=== PATIENT | female | born 1950 | race Caucasian/White ===

== ENCOUNTER → 2016-08-27 | Outpatient (CLI) | payer OTHER, BC ==
[2016-08-27 16:44] LABS: MEAN CORPUSCULAR HEMOGLOBIN 31.3 pg (27.0-33.0); MEAN CORPUSCULAR HGB CONC 34.5 g/dl (32.0-36.5); MEAN CORPUSCULAR VOLUME 90.7 fl (80.0-96.0); WHITE BLOOD COUNT 7.2 K/mm3 (4.0-10.0)
[2016-08-27 17:28] LABS: ALBUMIN/GLOBULIN RATIO 1.33 (1.00-1.93); ALKALINE PHOSPHATASE 43 U/L (45-117); ALT/SGPT 26 U/L (12-78); ANION GAP 6 MEQ/L (8-16); AST/SGOT 24 U/L (15-37); BILIRUBIN,TOTAL 0.6 MG/DL (0.2-1.0); BLOOD UREA NITROGEN 15 MG/DL (7-18); CALCIUM LEVEL 9.2 MG/DL (8.8-10.2); CARBON DIOXIDE LEVEL 33 MEQ/L (21-32); CHLORIDE LEVEL 104 MEQ/L (98-107); CHOLESTEROL LEVEL 197 MG/DL (<200); CREATININE FOR GFR 0.68 MG/DL (0.55-1.02); GLOMERULAR FILTRATION RATE > 60.0 (>45); GLUCOSE, FASTING 88 MG/DL (80-110); MAGNESIUM LEVEL 2.1 MG/DL (1.8-2.4); POTASSIUM SERUM 4.4 MEQ/L (3.5-5.1); SODIUM LEVEL 143 MEQ/L (136-145); TRIGLYCERIDES LEVEL 157 MG/DL (<150)
== END ==
LOC: M WUC 13:57
PROVIDERS: ATTEND Family Medicine
DX: I10 Essential (primary) hypertension (principal); E83.42 Hypomagnesemia

== ENCOUNTER → 2016-10-22 | Outpatient (CLI) | payer BC, OTHER ==
--- NOTE | 2016-10-22 18:19 | REP ---
Right foot four views: There is no fracture or dislocation. There are no calcifications or foreign bodies. There is spurring along the superior margin of the tarsal ossicles compatible with osteoarthritis. Mineralization joint spaces are otherwise unremarkable. Incidentally identified is a tiny calcaneal plantar spur. Impression: Tarsal osteoarthritis. Tiny calcaneal spur. Signed by Konstantin Dowell MD 10/22/2016 06:11 P
== END ==
LOC: M WUC 17:30
PROVIDERS: ATTEND Physician Assistant
DX: M79.671 Pain in right foot (principal); M77.31 Calcaneal spur, right foot; M19.071 Primary osteoarthritis, right ankle and foot

== ENCOUNTER → 2016-11-23 | Outpatient (CLI) | payer OTHER, BC ==
[2016-11-23 17:26] LABS: ALBUMIN/GLOBULIN RATIO 1.29 (1.00-1.93); ALKALINE PHOSPHATASE 45 U/L (45-117); ALT/SGPT 43 U/L (12-78); ANION GAP 7 MEQ/L (8-16); AST/SGOT 46 U/L (15-37); BILIRUBIN,TOTAL 0.2 MG/DL (0.2-1.0); BLOOD UREA NITROGEN 17 MG/DL (7-18); CALCIUM LEVEL 9.7 MG/DL (8.8-10.2); CARBON DIOXIDE LEVEL 32 MEQ/L (21-32); CHLORIDE LEVEL 103 MEQ/L (98-107); CREATININE FOR GFR 0.79 MG/DL (0.55-1.02); GLOMERULAR FILTRATION RATE > 60.0 (>45); GLUCOSE, FASTING 100 MG/DL (80-110); POTASSIUM SERUM 4.2 MEQ/L (3.5-5.1); SODIUM LEVEL 142 MEQ/L (136-145); TOTAL PROTEIN 7.1 GM/DL (6.4-8.2)
[2016-11-23 19:16] LABS: BASO # 0.1 K/mm3 (0.0-0.2); BASO % 1.6 % (0.0-1.0); EOS # 0.3 K/mm3 (0.0-0.50); EOS % 6.3 % (0.0-3.0); LARGE UNSTAINED CELL # 0.2 K/mm3 (0.0-0.4); LARGE UNSTAINED CELL % 4.7 % (0.0-4.0); LYMPH # 2.1 K/mm3 (1.5-4.5); LYMPH % 38.3 % (24.0-44.0); MEAN CORPUSCULAR HEMOGLOBIN 30.4 pg (27.0-33.0); MEAN CORPUSCULAR HGB CONC 33.2 g/dl (32.0-36.5); MEAN CORPUSCULAR VOLUME 91.6 fl (80.0-96.0); MONO # 0.5 K/mm3 (0.0-0.8); MONO % 10.5 % (0.0-5.0); NEUTROPHILS # 1.9 K/mm3 (1.8-7.7); NEUTROPHILS % 38.6 % (36.0-66.0); PLATELET COUNT, AUTOMATED 132 k/mm3 (150-450); WHITE BLOOD COUNT 4.8 K/mm3 (4.0-10.0)
[2016-11-26 00:07] LABS: Lyme Disease IgG/IgM Antibodie <0.91 ISR (0.00-0.90); Lyme Disease IgM Ab Quantitati <0.80 index (0.00-0.79)
== END ==
LOC: M WUC 11:13
PROVIDERS: ATTEND Physician Assistant
DX: R50.9 Fever, unspecified (principal); N39.0 Urinary tract infection, site not specified

== ENCOUNTER → 2016-12-17 | Outpatient (CLI) | payer OTHER, BC ==
[2016-12-17 19:21] LABS: MEAN CORPUSCULAR HEMOGLOBIN 30.6 pg (27.0-33.0); MEAN CORPUSCULAR HGB CONC 33.2 g/dl (32.0-36.5); MEAN CORPUSCULAR VOLUME 92.1 fl (80.0-96.0)
[2016-12-17 20:04] LABS: EOSINOPHILS 2 % (0-5)
[2016-12-17 20:09] LABS: ALBUMIN 3.9 GM/DL (3.2-5.2); ALBUMIN/GLOBULIN RATIO 1.26 (1.00-1.93); BILIRUBIN,DIRECT 0.1 MG/DL (0.0-0.2); BILIRUBIN,TOTAL 0.4 MG/DL (0.2-1.0)
[2016-12-23 00:07] LABS: E CHAFFEENSIS IgG TITER Negative (Neg:<1:64); E CHAFFEENSIS IgM TITER Negative (Neg:<1:20); HUMAN GRANULCYTIC EHRLIC IgG Negative (Neg:<1:64); HUMAN GRANULCYTIC EHRLIC IgM Negative (Neg:<1:20)
== END ==
LOC: M WUC 17:17
PROVIDERS: ATTEND Family Medicine
DX: A77.40 Ehrlichiosis, unspecified (principal)

== ENCOUNTER → 2017-04-09 | Outpatient (CLI) | payer BC, OTHER | LOC: M SLEEP 19:39 | DX: G47.33 Obstructive sleep apnea (adult) (pediatric) (principal) | CPT/HCPCS: 95810 ==

== ENCOUNTER → 2017-04-16 | Outpatient (REF) | payer OTHER ==
[2017-04-16 12:09] LABS: HEMATOCRIT 39.9 % (36.0-47.0); HEMOGLOBIN 13.3 g/dl (12.0-16.0); MEAN CORPUSCULAR HGB CONC 33.3 g/dl (32.0-36.5); MEAN CORPUSCULAR VOLUME 89.9 fl (80.0-96.0); PLATELET COUNT, AUTOMATED 209 10^3/uL (150-450); RED BLOOD COUNT 4.44 10^6/uL (4.00-5.40); RED CELL DISTRIBUTION WIDTH 11.9 % (11.5-14.5); WHITE BLOOD COUNT 7.6 10^3/uL (4.0-10.0)
[2017-04-16 12:29] LABS: ALBUMIN/GLOBULIN RATIO 1.38 (1.00-1.93); ALKALINE PHOSPHATASE 45 U/L (45-117); ALT/SGPT 35 U/L (12-78); ANION GAP 8 MEQ/L (8-16); AST/SGOT 25 U/L (7-37); BILIRUBIN,TOTAL 0.4 MG/DL (0.2-1.0); BLOOD UREA NITROGEN 15 MG/DL (7-18); CALCIUM LEVEL 9.3 MG/DL (8.8-10.2); CARBON DIOXIDE LEVEL 32 MEQ/L (21-32); CHLORIDE LEVEL 103 MEQ/L (98-107); CHOLESTEROL LEVEL 207 MG/DL (<200); CHOLESTEROL RISK RATIO 3.833 (<5); CREATININE FOR GFR 0.72 MG/DL (0.55-1.30); GLOMERULAR FILTRATION RATE > 60.0 (>45); GLUCOSE, FASTING 94 MG/DL (70-100); HDL CHOLESTEROL 54 MG/DL (>40); LDL CHOLESTEROL 114.2 MG/DL (<100); MAGNESIUM LEVEL 2.1 MG/DL (1.8-2.4); NON-HDL-C 153 MG/DL; POTASSIUM SERUM 3.9 MEQ/L (3.5-5.1); SODIUM LEVEL 143 MEQ/L (136-145); TOTAL PROTEIN 6.9 GM/DL (6.4-8.2); TRIGLYCERIDES LEVEL 194 MG/DL (<150)
== END ==
LOC: M LABDRAWC 07:26
DX: I10 Essential (primary) hypertension (principal); E83.42 Hypomagnesemia

== ENCOUNTER → 2017-05-19 | Outpatient (CLI) | payer BC, OTHER | LOC: M SLEEP 19:52 | DX: G47.33 Obstructive sleep apnea (adult) (pediatric) (principal) | CPT/HCPCS: 95811 ==

== ENCOUNTER → 2017-08-30 | Outpatient (REF) | payer OTHER | LOC: M SFHCWAGY 16:09 | DX: Z12.4 Encounter for screening for malignant neoplasm of cervix (principal) ==

== ENCOUNTER → 2017-10-20 | Outpatient (REF) | payer OTHER ==
[2017-10-20 11:52] LABS: ALBUMIN 3.9 GM/DL (3.2-5.2); ALBUMIN/GLOBULIN RATIO 1.18 (1.00-1.93); ALKALINE PHOSPHATASE 47 U/L (45-117); ALT/SGPT 29 U/L (12-78); ANION GAP 6 MEQ/L (8-16); AST/SGOT 23 U/L (7-37); BILIRUBIN,TOTAL 0.4 MG/DL (0.2-1.0); BLOOD UREA NITROGEN 19 MG/DL (7-18); CALCIUM LEVEL 9.3 MG/DL (8.8-10.2); CARBON DIOXIDE LEVEL 32 MEQ/L (21-32); CHLORIDE LEVEL 105 MEQ/L (98-107); CREATININE FOR GFR 0.65 MG/DL (0.55-1.30); GLOMERULAR FILTRATION RATE > 60.0 (>45); GLUCOSE, FASTING 89 MG/DL (70-100); MAGNESIUM LEVEL 2.2 MG/DL (1.8-2.4); POTASSIUM SERUM 3.6 MEQ/L (3.5-5.1); SODIUM LEVEL 143 MEQ/L (136-145); TOTAL PROTEIN 7.2 GM/DL (6.4-8.2)
== END ==
LOC: M LABDRAWC 11:17
DX: E83.42 Hypomagnesemia (principal); I10 Essential (primary) hypertension

== ENCOUNTER → 2017-12-24 | Outpatient (CLI) | payer OTHER ==
[2017-12-24 20:18] LABS: BLOOD UREA NITROGEN 30 MG/DL (7-18)
[2017-12-24 20:18] LABS: CREATININE FOR GFR 0.73 MG/DL (0.55-1.30); GLOMERULAR FILTRATION RATE > 60.0 (>45)
== END ==
LOC: M WUC 16:41
DX: M25.511 Pain in right shoulder (principal)
CPT/HCPCS: 82565

== ENCOUNTER → 2018-04-26 | Outpatient (REF) | payer OTHER ==
[2018-04-26 19:16] LABS: BASO # 0.1 10^3/uL (0.0-0.2); BASO % 1.6 % (0.0-1.0); EOS % 12.7 % (0.0-3.0); HEMATOCRIT 37.4 % (36.0-47.0); HEMOGLOBIN 12.3 g/dl (12.0-15.5); LYMPH # 2.6 10^3/uL (1.5-4.5); LYMPH % 33.6 % (24.0-44.0); MEAN CORPUSCULAR HEMOGLOBIN 30.1 pg (27.0-33.0); MEAN CORPUSCULAR HGB CONC 32.9 g/dl (32.0-36.5); MEAN CORPUSCULAR VOLUME 91.4 fl (80.0-96.0); MONO # 0.8 10^3/uL (0.0-0.8); MONO % 10.5 % (0.0-5.0); NEUTROPHILS # 3.2 10^3/uL (1.8-7.7); NEUTROPHILS % 41.3 % (36.0-66.0); PLATELET COUNT, AUTOMATED 174 10^3/uL (150-450); RED BLOOD COUNT 4.09 10^6/uL (4.00-5.40); WHITE BLOOD COUNT 7.7 10^3/uL (4.0-10.0)
[2018-04-26 19:27] LABS: ALBUMIN 3.9 GM/DL (3.2-5.2); ALT/SGPT 25 U/L (12-78); BILIRUBIN,TOTAL 0.3 MG/DL (0.2-1.0); BLOOD UREA NITROGEN 18 MG/DL (7-18); CALCIUM LEVEL 8.8 MG/DL (8.8-10.2); CARBON DIOXIDE LEVEL 33 MEQ/L (21-32); CHLORIDE LEVEL 103 MEQ/L (98-107); CHOLESTEROL LEVEL 207 MG/DL (<200); CHOLESTEROL RISK RATIO 4.224 (<5); GLOMERULAR FILTRATION RATE > 60.0 (>45); GLUCOSE, FASTING 98 MG/DL (70-100); HDL CHOLESTEROL 49 MG/DL (>40); LDL CHOLESTEROL 105 MG/DL (<100); NON-HDL-C 158 MG/DL; POTASSIUM SERUM 3.8 MEQ/L (3.5-5.1); SODIUM LEVEL 141 MEQ/L (136-145); TOTAL PROTEIN 7.2 GM/DL (6.4-8.2); TRIGLYCERIDES LEVEL 263 MG/DL (<150)
== END ==
LOC: M LABDRAWC 16:33
PROVIDERS: ATTEND Family Medicine
DX: I10 Essential (primary) hypertension (principal); E83.42 Hypomagnesemia

== ENCOUNTER → 2018-10-24 | Outpatient (REF) | payer OTHER ==
[2018-10-24 17:56] LABS: BASO # 0.1 10^3/uL (0.0-0.2); EOS # 0.6 10^3/uL (0.0-0.50); HEMATOCRIT 39.3 % (36.0-47.0); HEMOGLOBIN 12.7 g/dl (12.0-15.5); LYMPH # 2.6 10^3/uL (1.5-4.5); LYMPH % 32.5 % (24.0-44.0); MEAN CORPUSCULAR HEMOGLOBIN 30.5 pg (27.0-33.0); MEAN CORPUSCULAR HGB CONC 32.3 g/dl (32.0-36.5); MEAN CORPUSCULAR VOLUME 94.5 fl (80.0-96.0); MONO # 0.8 10^3/uL (0.0-0.8); MONO % 10.1 % (0.0-5.0); NEUTROPHILS # 3.9 10^3/uL (1.8-7.7); PLATELET COUNT, AUTOMATED 173 10^3/uL (150-450); RED BLOOD COUNT 4.16 10^6/uL (4.00-5.40)
[2018-10-24 18:00] LABS: ALBUMIN 4.1 GM/DL (3.2-5.2); ALT/SGPT 24 U/L (12-78); BILIRUBIN,TOTAL 0.5 MG/DL (0.2-1.0); BLOOD UREA NITROGEN 20 MG/DL (7-18); CALCIUM LEVEL 9.5 MG/DL (8.8-10.2); CARBON DIOXIDE LEVEL 30 MEQ/L (21-32); CHLORIDE LEVEL 103 MEQ/L (98-107); CHOLESTEROL LEVEL 204 MG/DL (<200); CHOLESTEROL RISK RATIO 3.642 (<5); CREATININE FOR GFR 0.69 MG/DL (0.55-1.30); GLOMERULAR FILTRATION RATE > 60.0 (>45); GLUCOSE, FASTING 99 MG/DL (70-100); HDL CHOLESTEROL 56 MG/DL (>40); LDL CHOLESTEROL 104 MG/DL (<100); NON-HDL-C 148 MG/DL; POTASSIUM SERUM 3.8 MEQ/L (3.5-5.1); SODIUM LEVEL 141 MEQ/L (136-145); TOTAL PROTEIN 7.1 GM/DL (6.4-8.2); TRIGLYCERIDES LEVEL 222 MG/DL (<150)
== END ==
LOC: M LABDRAWC 16:19
PROVIDERS: ATTEND Family Medicine
DX: I10 Essential (primary) hypertension (principal)

== ENCOUNTER → 2019-05-03 | Outpatient (REF) | payer OTHER ==
[2019-05-03 11:59] LABS: ALT/SGPT 20 U/L (12-78); BILIRUBIN,TOTAL 0.4 MG/DL (0.2-1.0); BLOOD UREA NITROGEN 23 MG/DL (7-18); CALCIUM LEVEL 9.6 MG/DL (8.8-10.2); CARBON DIOXIDE LEVEL 32 MEQ/L (21-32); CHLORIDE LEVEL 104 MEQ/L (98-107); CHOLESTEROL LEVEL 204 MG/DL (<200); CHOLESTEROL RISK RATIO 3.849 (<5); CREATININE FOR GFR 0.74 MG/DL (0.55-1.30); GLOMERULAR FILTRATION RATE > 60.0 (>45); GLUCOSE, FASTING 100 MG/DL (70-100); HDL CHOLESTEROL 53 MG/DL (>40); LDL CHOLESTEROL 113 MG/DL (<100); MAGNESIUM LEVEL 1.6 MG/DL (1.8-2.4); NON-HDL-C 151 MG/DL; POTASSIUM SERUM 3.6 MEQ/L (3.5-5.1); SODIUM LEVEL 141 MEQ/L (136-145); TOTAL PROTEIN 7.2 GM/DL (6.4-8.2); TRIGLYCERIDES LEVEL 192 MG/DL (<150)
[2019-05-03 12:11] LABS: HEMATOCRIT 39.4 % (36.0-47.0); HEMOGLOBIN 12.8 g/dl (12.0-15.5); MEAN CORPUSCULAR HEMOGLOBIN 29.8 pg (27.0-33.0); MEAN CORPUSCULAR HGB CONC 32.5 g/dl (32.0-36.5); MEAN CORPUSCULAR VOLUME 91.8 fl (80.0-96.0); PLATELET COUNT, AUTOMATED 203 10^3/uL (150-450); RED BLOOD COUNT 4.29 10^6/uL (4.00-5.40); WHITE BLOOD COUNT 7.9 10^3/uL (4.0-10.0)
== END ==
LOC: M LABDRAWC 11:21
PROVIDERS: ATTEND Family Medicine
DX: I10 Essential (primary) hypertension (principal); E83.42 Hypomagnesemia

== ENCOUNTER → 2019-05-08 | Outpatient (CLI) | payer BC, OTHER ==
--- NOTE | 2019-05-08 15:45 | REP ---
CHEST, TWO VIEWS: Comparison: 02/15/2012. There is no evidence of acute infiltrate. No pleural effusion is seen. The heart is normal in size. The mediastinal silhouette is unremarkable. The visualized osseous structures are intact. There are mild degenerative changes of the spine. Metallic anchor is seen in the right humeral head. IMPRESSION: No acute pulmonary disease. Electronically Signed by Konstantin Rapp MD 05/09/2019 07:46 P
== END ==
LOC: M WUC 13:46
PROVIDERS: ATTEND Physician Assistant
DX: J09.X2 Influenza due to identified novel influenza A virus with other respiratory manifestations (principal)

== ENCOUNTER → 2019-10-20 | Outpatient (REF) | payer BC, OTHER ==
[2019-12-07 21:37] LABS: HEMATOCRIT 40.7 % (36.0-47.0); HEMOGLOBIN 13.2 g/dl (12.0-15.5); MEAN CORPUSCULAR HEMOGLOBIN 29.9 pg (27.0-33.0); MEAN CORPUSCULAR HGB CONC 32.4 g/dl (32.0-36.5); MEAN CORPUSCULAR VOLUME 92.3 fl (80.0-96.0); PLATELET COUNT, AUTOMATED 209 10^3/uL (150-450); RED BLOOD COUNT 4.41 10^6/uL (4.00-5.40); WHITE BLOOD COUNT 8.5 10^3/uL (4.0-10.0)
[2019-12-17 23:15] LABS: ALBUMIN 3.9 GM/DL (3.2-5.2); ALT/SGPT 22 U/L (12-78); BILIRUBIN,TOTAL 0.3 MG/DL (0.2-1.0); BLOOD UREA NITROGEN 21 MG/DL (7-18); CALCIUM LEVEL 9.4 MG/DL (8.8-10.2); CARBON DIOXIDE LEVEL 32 MEQ/L (21-32); CHLORIDE LEVEL 105 MEQ/L (98-107); CHOLESTEROL LEVEL 205 MG/DL (<200); CREATININE FOR GFR 0.72 MG/DL (0.55-1.30); GLOMERULAR FILTRATION RATE > 60.0 (>45); GLUCOSE, FASTING 102 MG/DL (70-100); HDL CHOLESTEROL 48 MG/DL (>40); LDL CHOLESTEROL 114 MG/DL (<100); MAGNESIUM LEVEL 1.9 MG/DL (1.8-2.4); NON-HDL-C 157 MG/DL; POTASSIUM SERUM 3.6 MEQ/L (3.5-5.1); SODIUM LEVEL 143 MEQ/L (136-145); TRIGLYCERIDES LEVEL 216 MG/DL (<150)
== END ==
LOC: M LABDRAWC 10:46
PROVIDERS: ATTEND Family Medicine
DX: I10 Essential (primary) hypertension (principal); E83.42 Hypomagnesemia

== ENCOUNTER → 2020-01-11 | Outpatient (CLI) | payer BC, OTHER ==
[2020-01-11 19:51] LABS: BASO # 0.1 10^3/uL (0.0-0.2); EOS # 0.3 10^3/uL (0.0-0.5); EOS % 3.2 % (0.0-3.0); HEMATOCRIT 38.7 % (36.0-47.0); HEMOGLOBIN 12.2 g/dl (12.0-15.5); LYMPH # 2.6 10^3/uL (1.5-5.0); LYMPH % 27.8 % (24.0-44.0); MEAN CORPUSCULAR HGB CONC 31.5 g/dl (32.0-36.5); MEAN CORPUSCULAR VOLUME 92.1 fl (80.0-96.0); MONO % 10.6 % (0.0-5.0); NEUTROPHILS # 5.4 10^3/uL (1.5-8.5); NEUTROPHILS % 57.2 % (36.0-66.0); PLATELET COUNT, AUTOMATED 214 10^3/uL (150-450); WHITE BLOOD COUNT 9.4 10^3/uL (4.0-10.0)
[2020-01-11 20:14] LABS: ALT/SGPT 32 U/L (12-78); AMYLASE 24 U/L (25-115); BILIRUBIN,TOTAL 0.3 MG/DL (0.2-1.0); BLOOD UREA NITROGEN 22 MG/DL (7-18); CALCIUM LEVEL 9.3 MG/DL (8.8-10.2); CARBON DIOXIDE LEVEL 33 MEQ/L (21-32); CHLORIDE LEVEL 101 MEQ/L (98-107); CREATININE FOR GFR 0.75 MG/DL (0.55-1.30); GLOMERULAR FILTRATION RATE > 60.0 (>45); GLUCOSE, FASTING 103 MG/DL (70-100); LIPASE 102 U/L (73-393); POTASSIUM SERUM 3.6 MEQ/L (3.5-5.1); SODIUM LEVEL 138 MEQ/L (136-145)
== END ==
LOC: M WUC 16:06
PROVIDERS: ATTEND Physician Assistant
DX: R19.7 Diarrhea, unspecified (principal)

== ENCOUNTER → 2020-01-11 | Outpatient (REF) | payer BC, OTHER | LOC: M WUC 12:00 | PROVIDERS: ATTEND Physician Assistant | DX: R10.12 Left upper quadrant pain (principal) ==

== ENCOUNTER → 2020-01-11 | Outpatient (REF) | payer OTHER | LOC: M LAB REF 12:31 | PROVIDERS: ATTEND Physician Assistant | DX: R19.7 Diarrhea, unspecified (principal) ==

== ENCOUNTER → 2020-02-20 | Outpatient (CLI) | payer BC, OTHER ==
--- NOTE | 2020-02-20 13:47 | REP ---
INDICATION: CONTUSION OF LEFT FOOT COMPARISON: None. TECHNIQUE: There are four views. FINDINGS: There is mild osteoarthritis of the great toe MTP articulation. The PIP articulations of the 2nd and 3rd digits appear fused. There are bridging osteophytes superiorly in the tarsal ossicles accompanied by joint space narrowing, seen best on the lateral view, compatible with osteoarthritis. Mineralization is normal. There is no fracture or dislocation. There are calcaneal plantar and Achilles spurs. IMPRESSION: Mild great toe MTP osteoarthritis. Fused 2nd and 3rd digit PIP articulations. Carpal ossicle osteoarthritis. Calcaneal plantar and Achilles spurs. <Electronically signed by Konstantin Dowell > 02/20/20 [id number]
== END ==
LOC: M WUC 11:23
PROVIDERS: ATTEND Physician Assistant
DX: S90.32XA Contusion of left foot, initial encounter (principal); X58.XXXA Exposure to other specified factors, initial encounter; Y92.9 Unspecified place or not applicable; Y93.9 Activity, unspecified; Y99.9 Unspecified external cause status; M19.072 Primary osteoarthritis, left ankle and foot; M77.32 Calcaneal spur, left foot; M76.62 Achilles tendinitis, left leg

== ENCOUNTER → 2020-02-26 | Outpatient (CLI) | payer SELFPAY | LOC: M LABSMTC 14:15 | PROVIDERS: ATTEND Pediatrics | DX: Z20.828 Contact with and (suspected) exposure to other viral communicable diseases (principal) ==

== ENCOUNTER → 2020-04-18 | Outpatient (REF) | payer OTHER ==
[2020-04-18 11:46] LABS: HEMATOCRIT 38.4 % (36.0-47.0); HEMOGLOBIN 12.5 g/dl (12.0-15.5); MEAN CORPUSCULAR HEMOGLOBIN 29.8 pg (27.0-33.0); MEAN CORPUSCULAR HGB CONC 32.6 g/dl (32.0-36.5); MEAN CORPUSCULAR VOLUME 91.4 fl (80.0-96.0); PLATELET COUNT, AUTOMATED 187 10^3/uL (150-450); WHITE BLOOD COUNT 8.9 10^3/uL (4.0-10.0)
[2020-04-18 12:28] LABS: ALBUMIN 3.8 GM/DL (3.2-5.2); ALT/SGPT 23 U/L (12-78); BILIRUBIN,TOTAL 0.3 MG/DL (0.2-1.0); BLOOD UREA NITROGEN 22 MG/DL (7-18); CALCIUM LEVEL 10.4 MG/DL (8.8-10.2); CARBON DIOXIDE LEVEL 33 MEQ/L (21-32); CHLORIDE LEVEL 103 MEQ/L (98-107); CHOLESTEROL LEVEL 183 MG/DL (<200); CHOLESTEROL RISK RATIO 3.978 (<5); CREATININE FOR GFR 0.79 MG/DL (0.55-1.30); GLOMERULAR FILTRATION RATE > 60.0 (>45); GLUCOSE, FASTING 113 MG/DL (70-100); HDL CHOLESTEROL 46 MG/DL (>40); LDL CHOLESTEROL 101 MG/DL (<100); MAGNESIUM LEVEL 1.8 MG/DL (1.8-2.4); NON-HDL-C 137 MG/DL; POTASSIUM SERUM 3.8 MEQ/L (3.5-5.1); SODIUM LEVEL 143 MEQ/L (136-145); TOTAL PROTEIN 6.8 GM/DL (6.4-8.2); TRIGLYCERIDES LEVEL 178 MG/DL (<150)
== END ==
LOC: M LABDRAWC 11:16
PROVIDERS: ATTEND Family Medicine
DX: E83.42 Hypomagnesemia (principal); I10 Essential (primary) hypertension

== ENCOUNTER → 2020-05-14 | Outpatient (CLI) | payer BC, OTHER ==
--- NOTE | 2020-05-14 16:49 | REP ---
INDICATION: OCCLUSION/STENOSIS DAR CAROTID ARTERIES COMPARISON: None. TECHNIQUE: Rapp scale and color Doppler evaluation using linear high frequency transducer Findings: FINDINGS: Two-dimensional rapp scale and color images demonstrate normal arterial lumen with laminar flow and no appreciable narrowing. Minimal mixed atheromatous plaquing noted at the carotid bulbs. Color Doppler interrogation demonstrates normal arterial wave patterns and velocities with no significant spectral broadening. Normal flow direction is appreciated in the bilateral vertebral arteries. ICA peak systolic velocity: Right 70.2 cm/s; Left 68.9 cm/s ICA diastolic velocity: Right 28.9 cm/s; Left 27.5 cm/s ECA peak systolic velocity: Right 61.3 cm/s; Left 56.5 cm/s CCA peak systolic velocity: Right 61.8 cm/s; Left 88.8 cm/s ICA/CCA ratio: Right 1.13 cm/s; Left 1.28 cm/s IMPRESSION: No hemodynamically significant areas of narrowing or stenosis appreciated. Based on set standards narrowing falls within the less than 50% range. <Electronically signed by Mario Locke > 05/14/20 [id number]
== END ==
LOC: M RAD 15:37
PROVIDERS: ATTEND Family Medicine
DX: I65.23 Occlusion and stenosis of bilateral carotid arteries (principal)

== ENCOUNTER → 2020-05-29 | Outpatient (CLI) | payer BC, OTHER ==
--- NOTE | 2020-05-29 17:23 | REPVR ---
PROCEDURE INFORMATION: Exam: MR Lumbar Spine Without Contrast. Exam date and time: 05/29/2020 3:06 PM Age: 69 years old Clinical indication: Low back pain; Additional info: Lumar neurogenic claudication ? hnp stenosis TECHNIQUE: Imaging protocol: Multiplanar magnetic resonance images of the lumbar spine without contrast. COMPARISON: No relevant prior studies available. FINDINGS: Vertebrae: No fracture. There is no bone marrow edema or marrow infiltrating lesion. Spinal cord: The lower thoracic spinal cord and conus are normal. T10-T11: There is advanced disc space narrowing with a mild disc bulge. There is facet hypertrophy. There is moderate foraminal stenosis. This is seen on sagittal images. No axial images at this level. T11-T12: Advanced disc space narrowing with type 1 degenerative changes in the adjacent marrow. Mild disc bulge. There is facet hypertrophy. Mild foraminal stenosis seen on sagittal images. No axial images at this level. T12-L1: No disc bulge. No central or foraminal stenosis. L1-L2: No significant disc bulge. Mild facet hypertrophy. No central or foraminal stenosis. L2-L3: Mild disc bulge. There is facet hypertrophy. No central stenosis. There is mild left and moderate right foraminal stenosis. L3-L4: There is advanced disc space narrowing with a broad disc bulge. There is advanced facet arthropathy resulting in 7 mm spondylolisthesis. This results in severe central spinal stenosis with central compression of the thecal sac. There is moderate right and more severe left foraminal and lateral recess stenosis. L4-L5: Severe disc space narrowing with a 5 mm broad-based central disc protrusion slightly indenting the thecal sac. There is facet arthropathy. There is no central stenosis. There is moderate left and moderate to severe right foraminal stenosis. L5-S1: No disc bulge. Facet hypertrophy with mild left foraminal stenosis. Soft tissues: No paraspinous or intraspinal mass, hemorrhage or fluid collection. IMPRESSION: 1. No fracture. 2. Disc disease and degenerative findings as detailed above. This is most advanced at L3-L4 with severe central spinal stenosis at this level. Electronically signed by: Timothy Graff On 05/29/2020 17:23:31 PM
== END ==
LOC: M PLARAD 14:06
PROVIDERS: ATTEND Physician Assistant
DX: M51.36 Other intervertebral disc degeneration, lumbar region (principal); M48.062 Spinal stenosis, lumbar region with neurogenic claudication

== ENCOUNTER → 2020-09-23 | Outpatient (REF) | payer OTHER | LOC: M LAB REF 20:05 | PROVIDERS: ATTEND Physician Assistant | DX: N39.0 Urinary tract infection, site not specified (principal) ==

== ENCOUNTER → 2020-10-07 | Outpatient (REF) | payer OTHER | LOC: M WUC 19:52 | PROVIDERS: ATTEND Physician Assistant | DX: R30.0 Dysuria (principal) ==

== ENCOUNTER → 2020-10-28 | Outpatient (CLI) | payer OTHER ==
[2020-10-28 16:22] LABS: BASO # 0.1 10^3/uL (0.0-0.2); BASO % 1.1 % (0.0-1.0); EOS # 0.3 10^3/uL (0.0-0.5); EOS % 2.2 % (0.0-3.0); HEMATOCRIT 40.2 % (36.0-47.0); HEMOGLOBIN 13.1 g/dl (12.0-15.5); LYMPH # 2.5 10^3/uL (1.5-5.0); LYMPH % 22.7 % (24.0-44.0); MEAN CORPUSCULAR HEMOGLOBIN 30.2 pg (27.0-33.0); MEAN CORPUSCULAR HGB CONC 32.6 g/dl (32.0-36.5); MEAN CORPUSCULAR VOLUME 92.6 fl (80.0-96.0); MONO # 1.1 10^3/uL (0.0-0.8); MONO % 10.2 % (2.0-8.0); NEUTROPHILS # 7.1 10^3/uL (1.5-8.5); NEUTROPHILS % 63.4 % (36.0-66.0); PLATELET COUNT, AUTOMATED 208 10^3/uL (150-450); RED BLOOD COUNT 4.34 10^6/uL (4.00-5.40); WHITE BLOOD COUNT 11.2 10^3/uL (4.0-10.0)
[2020-10-28 16:51] LABS: ALBUMIN 3.9 GM/DL (3.2-5.2); ALT/SGPT 30 U/L (12-78); BILIRUBIN,TOTAL 0.5 MG/DL (0.2-1.0); BLOOD UREA NITROGEN 22 MG/DL (7-18); CALCIUM LEVEL 10.9 MG/DL (8.8-10.2); CARBON DIOXIDE LEVEL 33 MEQ/L (21-32); CHLORIDE LEVEL 102 MEQ/L (98-107); CREATININE FOR GFR 0.96 MG/DL (0.55-1.30); GLOMERULAR FILTRATION RATE > 60.0 (>45); GLUCOSE, FASTING 117 MG/DL (70-100); LIPASE 75 U/L (73-393); POTASSIUM SERUM 3.9 MEQ/L (3.5-5.1); SODIUM LEVEL 142 MEQ/L (136-145); TOTAL PROTEIN 7.1 GM/DL (6.4-8.2)
== END ==
LOC: M WUC 13:07
PROVIDERS: ATTEND Physician Assistant
DX: R10.12 Left upper quadrant pain (principal)

== ENCOUNTER → 2020-10-29 | Outpatient (CLI) | payer BC, OTHER ==
[~2020-10-29] MED LIST: GASTROGRAFIN SOLUTION 30ML (Q9963) As Ordered ONE; ISOVUE-370 76% 100ML VIAL As Ordered ONE
--- NOTE | 2020-10-29 12:07 | REP ---
INDICATION: LUQ PAIN. COMPARISON: None. TECHNIQUE: Standard helical technique after the intravenous administration of 100 cc Isovue 370 and oral bowel preparatory contrast administration FINDINGS: The lung bases are clear. The liver, gallbladder, spleen, adrenal glands, and kidneys are within normal limits. There is a large mass arising from the pancreatic body extending to the pancreatic tail which measures approximately 8.8 x 4 x 4.5 cm. This abuts the lesser curvature of the stomach antral region. Separation from the stomach cannot be made. There are 2 nodules in the small bowel mesentery inferior to the aforementioned mass on the left also abutting the posterior wall of the stomach antral region and 1 measuring 1.7 cm the other 1.5 cm. The abdominal aorta is within normal limits. There is no evidence of para-aortic adenopathy. There is no free fluid or free air. The bowel loops and the mesenteries are otherwise within normal limits. Bone window technique throughout the exam shows a grade 1/2 L3 upon L4 spondylolisthesis without evidence of spondylolysis. Heavy degenerative facet joint changes are seen bilaterally at multiple levels particularly L3-4. IMPRESSION: 1. Large pancreatic mass as described above. Two additional sites are seen in the mesentery on the left as well and discussed in detail above. 2. Other findings as described above. <Electronically signed by Chano Vega > 10/29/20 [id number]
== END ==
LOC: M RAD 09:54
PROVIDERS: ATTEND Physician Assistant
DX: K86.9 Disease of pancreas, unspecified (principal); R10.12 Left upper quadrant pain
CPT/HCPCS: 74177; Q9963; Q9967

== ENCOUNTER → 2021-07-02 | Outpatient (REF) | payer MEDICARE, BC, OTHER ==
[2021-07-02 16:38] LABS: FREE T4 0.94 NG/DL (0.76-1.46); THYROID STIMULATING HORMONE 2.07 uIU/ML (0.358-3.740)
== END ==
LOC: M LABDRWCV 15:37
PROVIDERS: ATTEND Family Medicine
DX: Z79.899 Other long term (current) drug therapy (principal)

== ENCOUNTER 2021-07-24 15:59 | Observation (INO) | payer MEDICARE, BC, OTHER ==
[~2021-07-24] VITALS: Ht 162.6 cm; Wt 59.1 kg
[2021-07-24] MEDS ORDERED: MIRT-10 (16:17)
[2021-07-24] MEDS ORDERED: OXYC-517 (16:17)
[2021-07-24] MEDS ORDERED: PRAV40TA2 (16:17)
[2021-07-24] MEDS ORDERED: METO1TAB87 (16:17)
[2021-07-24] MEDS ORDERED: OMEP-173 (16:17)
[2021-07-24] MEDS ORDERED: CIPR500T39 (16:17)
[2021-07-24] MEDS ORDERED: PROC10TA5 (16:17)
[2021-07-24] MEDS ORDERED: DULO1CAP5 (16:17)
[2021-07-24] MEDS ORDERED: MORPHINE 4 MG/ML 1ML VIAL/SYRINGE IV ONE (16:55)
[2021-07-24] MEDS ORDERED: NS 1,000 ML IV SCH (17:00)
[2021-07-24 18:07] LABS: BASO % 0.7 % (0.0-1.0); EOS # 0.1 10^3/uL (0.0-0.5); EOS % 1.4 % (0.0-3.0); HEMATOCRIT 31.8 % (36.0-47.0); HEMOGLOBIN 10.4 g/dl (12.0-15.5); LYMPH # 0.6 10^3/uL (1.5-5.0); LYMPH % 10.8 % (24.0-44.0); MEAN CORPUSCULAR HEMOGLOBIN 32.3 pg (27.0-33.0); MEAN CORPUSCULAR HGB CONC 32.7 g/dl (32.0-36.5); MEAN CORPUSCULAR VOLUME 98.8 fl (80.0-96.0); MONO # 0.3 10^3/uL (0.0-0.8); MONO % 4.7 % (2.0-8.0); NEUTROPHILS # 4.6 10^3/uL (1.5-8.5); PLATELET COUNT, AUTOMATED 111 10^3/uL (150-450); RED BLOOD COUNT 3.22 10^6/uL (4.00-5.40); WHITE BLOOD COUNT 5.6 10^3/uL (4.0-10.0)
[2021-07-24] MEDS ORDERED: ONDANSETRON 4MG/2ML VIAL IV ONE (18:15)
[2021-07-24 18:43] LABS: ALBUMIN 3.4 GM/DL (3.2-5.2); ALT/SGPT 25 U/L (12-78); BILIRUBIN,DIRECT 0.2 MG/DL (0.0-0.2); BILIRUBIN,TOTAL 0.6 MG/DL (0.2-1.0); BLOOD UREA NITROGEN 16 MG/DL (7-18); CALCIUM LEVEL 8.3 MG/DL (8.8-10.2); CARBON DIOXIDE LEVEL 31 MEQ/L (21-32); CHLORIDE LEVEL 103 MEQ/L (98-107); CREATININE FOR GFR 0.64 MG/DL (0.55-1.30); GLOMERULAR FILTRATION RATE > 60.0 (>45); GLUCOSE, FASTING 112 MG/DL (70-100); LIPASE 342 U/L (73-393); SODIUM LEVEL 139 MEQ/L (136-145); TOTAL PROTEIN 6.3 GM/DL (6.4-8.2)
[2021-07-24] MEDS ORDERED: cefTRIAXone SOD 1 GM in D5W MINI-BAG PLUS 50 ML IV ONE (20:10)
[2021-07-24] MEDS ORDERED: FENTANYL REMOVAL DOCUMENTATION MISC XX SCH (20:45)
[2021-07-24] MEDS ORDERED: fentaNYL 12 MCG/HR PATCH TOP ONE (20:45)
[2021-07-24] MEDS ORDERED: METOPROLOL TART 25 MG TABLET PO SCH (21:00)
[2021-07-24] MEDS ORDERED: SENNA 8.6 MG TAB (SENOKOT) PO SCH (21:00)
[2021-07-24] MEDS ORDERED: OMEPRAZOLE 20MG CAP PO SCH (21:00)
[2021-07-24] MEDS ORDERED: DULoxetine 30MG CAPSULE (CYMBALTA) PO SCH (21:00)
[2021-07-24] MEDS ORDERED: MIRTAZAPINE 15 MG TAB PO SCH (21:00)
[2021-07-24] MEDS ORDERED: SENN8.6T28 PO (21:20)
[2021-07-24] MEDS ORDERED: METO25TA4 PO (21:20)
[2021-07-24] MEDS ORDERED: VITA100093 PO (21:20)
[2021-07-24] MEDS ORDERED: DULO30CA9 PO (21:20)
[2021-07-24] MEDS ORDERED: YUVA10TA3 VA (21:20)
[2021-07-24] MEDS ORDERED: PROC5TAB57 PO (21:20)
[2021-07-24] MEDS ORDERED: VITMTA PO (21:20)
[2021-07-24] MEDS ORDERED: DEXA2TA PO (21:20)
[2021-07-24] MEDS ORDERED: MIRT-62 PO (21:20)
[2021-07-24] MEDS ORDERED: OMEP-173 PO (21:20)
[2021-07-24] MEDS ORDERED: OXYC-517 PO (21:20)
[2021-07-24] MEDS ORDERED: PRAV40TA2 PO (21:20)
[2021-07-24] MEDS ORDERED: HOME MED LIST COMPLETE! XX SCH (21:25)
[2021-07-24] MEDS ORDERED: ACETAMINOPHEN TAB 650MG DOSE (2X325MG) PO PRN (22:05)
[2021-07-24] MEDS ORDERED: PERCOCET 5MG/325MG TAB PO PRN (22:05)
[2021-07-24] MEDS ORDERED: ONDANSETRON 4MG ORAL DISINTEGRATING TAB PO PRN (22:05)
[2021-07-24 22:40] LABS: RSV AMPLIFICATION NEGATIVE (NEGATIVE)
[2021-07-25 01:35] VITALS: BP 140/72
[2021-07-25] MEDS ORDERED: PERCOCET 5MG/325MG TAB PO PRN (03:25)
[2021-07-25] MEDS ORDERED: ONDANSETRON 4MG ORAL DISINTEGRATING TAB PO PRN (03:25)
[2021-07-25] MEDS ORDERED: fentaNYL 12 MCG/HR PATCH TOP ONE (04:00)
[2021-07-25 05:22] VITALS: BP 148/78
[2021-07-25] MEDS ORDERED: ENOXAPARIN 40MG/0.4ML SYRINGE (J1650 PER 10MG) SC SCH ×4 (09:00)
[2021-07-25] MEDS ORDERED: FOSFOMYCIN TROMETHAMINE 3 GM POWDER PACKET (MONUROL) PO ONE ×3 (09:00)
[2021-07-25] MEDS ORDERED: MULTIVITAMINS/MINERALS THERAP 1 TAB PO SCH (09:00)
[2021-07-25] MEDS ORDERED: FENT12DI12 TOP ×2 (10:26→11:37)
[2021-07-25] MEDS ORDERED: NARC1SPR NARES (10:26)
[2021-07-25] MEDS ORDERED: MIRTAZAPINE 15 MG TAB PO SCH (21:00)
[2021-07-25] MEDS ORDERED: DULoxetine 30MG CAPSULE (CYMBALTA) PO SCH (21:00)
[2021-07-28] MEDS ORDERED: FENTANYL REMOVAL DOCUMENTATION MISC XX SCH (04:00)
== END 2021-07-25 12:20 | disposition home or self-care (01) ==
LOC: M ED 15:59 → M ED INP 16:00 → UNDOADMOB 22:05 → M ED INP 22:05 → M ED 23:40 → M MSPAV 07-25 01:35
PROVIDERS: ADMIT Internal Medicine; ATTEND Internal Medicine
DX: G89.29 Other chronic pain (principal); C25.9 Malignant neoplasm of pancreas, unspecified; D75.9 Disease of blood and blood-forming organs, unspecified; E78.00 Pure hypercholesterolemia, unspecified; F32.9 Major depressive disorder, single episode, unspecified; Z79.899 Other long term (current) drug therapy; Z88.2 Allergy status to sulfonamides; Z92.21 Personal history of antineoplastic chemotherapy
CPT/HCPCS: 36415; 74176; 80048; 80076; 81001; 83690; 85025; 87086; 87631; 93041; 94760; 96365; 96372; 96375; 99285; G0378; J0696; J1650; J2270; J2405

== ENCOUNTER → 2021-08-05 | Outpatient (CLI) | payer MEDICARE, BC, OTHER ==
[~2021-08-05] MED LIST changes: +CIPR500T39; +DEXA2TA PO; +DULO1CAP5; +DULO30CA9 PO; +FENT12DI12 TOP; -GASTROGRAFIN SOLUTION 30ML (Q9963) As Ordered ONE; -ISOVUE-370 76% 100ML VIAL As Ordered ONE; +METO1TAB87; +METO25TA4 PO; +MIRT-10; +MIRT-62 PO; +NARC1SPR NARES; +OMEP-173; +OMEP-173 PO; +OXYC-517; +OXYC-517 PO; +PRAV40TA2; +PRAV40TA2 PO; +PROC10TA5; +PROC5TAB57 PO; +SENN8.6T28 PO; +VITA100093 PO; +VITMTA PO; +YUVA10TA3 VA
== END ==
LOC: M ONCR 11:40
PROVIDERS: ATTEND General Practice
DX: C25.9 Malignant neoplasm of pancreas, unspecified (principal); C78.7 Secondary malignant neoplasm of liver and intrahepatic bile duct; C56.9 Malignant neoplasm of unspecified ovary; C78.6 Secondary malignant neoplasm of retroperitoneum and peritoneum; R59.0 Localized enlarged lymph nodes; G89.3 Neoplasm related pain (acute) (chronic); R91.8 Other nonspecific abnormal finding of lung field; R53.83 Other fatigue; R63.4 Abnormal weight loss; Z79.810 Long term (current) use of selective estrogen receptor modulators (SERMs); Z79.899 Other long term (current) drug therapy; Z88.1 Allergy status to other antibiotic agents; Z88.2 Allergy status to sulfonamides

== ENCOUNTER 2021-08-29 12:53 | Outpatient (RCR) | payer MEDICARE, BC, OTHER ==
[~2021-08-29 12:53] MED LIST changes: +ONDA-83 PO
== END 2021-09-04 ==
LOC: M ONCR 12:53
PROVIDERS: ATTEND General Practice
DX: C25.1 Malignant neoplasm of body of pancreas (principal)

== ENCOUNTER → 2021-09-18 | Outpatient (CLI) | payer MEDICARE, BC, OTHER ==
[~2021-09-18] VITALS: Ht 162.6 cm; Wt 53.2 kg
[~2021-09-18] MED LIST changes: +DULC10SU2 PR; +OXYC-403 PO; +OXYC100C5 PO
[2021-09-18 10:40] VITALS: BP 118/73
== END ==
LOC: M PAL 10:26
PROVIDERS: ATTEND Nurse Practitioner Adult Health
DX: C25.1 Malignant neoplasm of body of pancreas (principal); C78.7 Secondary malignant neoplasm of liver and intrahepatic bile duct; C79.60 Secondary malignant neoplasm of unspecified ovary; C78.6 Secondary malignant neoplasm of retroperitoneum and peritoneum; R11.0 Nausea; R13.10 Dysphagia, unspecified; G89.3 Neoplasm related pain (acute) (chronic); Z79.52 Long term (current) use of systemic steroids; Z79.899 Other long term (current) drug therapy; Z79.891 Long term (current) use of opiate analgesic; Z92.3 Personal history of irradiation; Z88.1 Allergy status to other antibiotic agents; Z88.2 Allergy status to sulfonamides

== ENCOUNTER → 2021-10-02 | Outpatient (CLI) | payer MEDICARE, BC, OTHER ==
[~2021-10-02] VITALS: Ht 160 cm; Wt 49.7 kg
[2021-10-02 13:12] VITALS: BP 123/69
== END ==
LOC: M PAL 12:51
PROVIDERS: ATTEND Nurse Practitioner Adult Health
DX: C25.9 Malignant neoplasm of pancreas, unspecified (principal); C78.7 Secondary malignant neoplasm of liver and intrahepatic bile duct; C79.60 Secondary malignant neoplasm of unspecified ovary; C78.6 Secondary malignant neoplasm of retroperitoneum and peritoneum; G89.3 Neoplasm related pain (acute) (chronic); R13.10 Dysphagia, unspecified; Z79.891 Long term (current) use of opiate analgesic; Z79.899 Other long term (current) drug therapy; Z92.3 Personal history of irradiation; Z88.1 Allergy status to other antibiotic agents; Z88.2 Allergy status to sulfonamides; Z92.21 Personal history of antineoplastic chemotherapy; R63.8 Other symptoms and signs concerning food and fluid intake; G47.33 Obstructive sleep apnea (adult) (pediatric); I48.92 Unspecified atrial flutter; I10 Essential (primary) hypertension